=== PATIENT | female | born 1955 | race Caucasian/White ===

== ENCOUNTER 2020-01-26 02:12 | Outpatient (CLI) | payer BC, SELFPAY ==
--- NOTE | 2020-01-26 | DI.CTLCSR_ITS ---
EXAM: CT CHEST LUNG CANCER SCREEN CLINICAL HISTORY: SCREENING FOR LUNG CA, FORMER SMOKER, Z87.891 TECHNIQUE: CT examination of the chest was performed utilizing low-dose lung cancer screening protoc ol. COMPARISON: No exams were available for comparison FINDINGS: Images obtained through the upper abdomen show small left lobe hepatic cyst and otherwise unremarkabl e appearance of liver, spleen, adrenals, and kidneys. There is ectasia of the ascending aorta at 43 millimeters. No mediastinal mass or adenopathy seen. Tracheobronchial tree appears intact. There are areas of apparent linear scarring in the lung apices with associated calcifications in the right lung apex. There is a left upper lobe pulmonary nodule measuring about 3 x 6 x 4 millimeters, an additional approximately 3 millimeter in diameter nodule is also seen in the left upper lobe. Scattered reticular radiodensities are noted bilaterally without additional significant focal pulmonary nodules. There appears to be mild central lobular emphysema a nd there is some subpleural emphysema in the lung apices. No pleural effusion or pleural-based mass seen. IMPRESSION: Category 2 LDCT, benign appearance or behavior. Continue annual screening with LDCT in 12 months. Lung RADS Cat 2 - Benign Appearance / Behavior: Nodules with a very low likelihood of becoming a clin ically active caner due to size or lack of growth
== END 2020-01-26 02:32 ==
PROVIDERS: PCP Family Medicine; Visit Provider Family Medicine
DX: Z12.2 Encounter for screening for malignant neoplasm of respiratory organs (principal); Z87.891 Personal history of nicotine dependence; K76.89 Other specified diseases of liver; I77.819 Aortic ectasia, unspecified site; R91.1 Solitary pulmonary nodule; R91.8 Other nonspecific abnormal finding of lung field
CPT/HCPCS: G0297